=== PATIENT | male | born 2000 | race Caucasian/White ===

== ENCOUNTER 2019-07-10 00:26 | Outpatient (CLI) | payer OTHER, SELFPAY ==
[2019-07-10 16:18] LABS: SARS-CoV-2 RNA PCR Negative
== END 2019-07-10 00:27 | disposition home or self-care (01) ==
PROVIDERS: PCP Family Medicine; Visit Provider Internal Medicine Gastroenterology
DX: Z01.818 Encounter for other preprocedural examination (principal); Z11.59 Encounter for screening for other viral diseases
CPT/HCPCS: 87635; C9803; U0003

== ENCOUNTER 2019-07-13 00:34 | Day surgery (SDC) | payer OTHER, SELFPAY ==
[2019-07-09 14:45] VITALS: BMI 15.7
[2019-07-13 08:10] VITALS: BP 126/86; PULSE 101; RESP 16; TEMP 37.3; O2SAT 100; BMI 16.9
[2019-07-13] MEDS: LACTATED RINGERS 1,000 ML 150 ML IV CONT (08:24)
--- NOTE | 2019-07-13 08:25 | WPDANESEPPF ---
Anes - Initial Pre Proc Eval Procedure: Operation Date: 07/13/19 09:30 Proposed Procedures p Esophagogastroduodenoscopy & Colonoscopy - Jackson Johnson MD Date/Time: 07/13/19 08:25 Surgeon: Jackson Johnson MD Pre Op Diagnosis: Diarrhea/ Weight Loss Patient Data Age: 18 Gender: M Height: 5 ft 10 in Weight: 53.7 kg Last Vital Signs Temp 37.3 C 07/13/19 08:10 Pulse 101 H 07/13/19 08:10 Resp 16 07/13/19 08:10 BP 126/86 07/13/19 08:10 Pulse Ox 100 07/13/19 08:10 Allergies Allergy/AdvReac Type Severity Reaction Status Date / Time No Known Allergies Allergy Verified 07/13/19 08:03 Home Medications Medication Instructions Recorded Confirmed Type No Home Medications 07/09/19 07/13/19 History Patient hx anesthesia problems: none Family hx anesthesia problems: none PMFSH Past Medical History Medical History Diarrhea Nausea Weight loss Family History Family History Father Family history of malignant neoplasm of kidney Ulcerative colitis confined to rectum Social History Social History Smoking status: Never smoker Alcohol intake: never Substance use: never Substance use type: does not use Gender identity (if verbalized by the patient): Male Anes - Eval Final PreProcedure Day of Procedure 07/13/19 08:25 Patient weight: normal Heart: regular rate and rhythm Lungs: clear to auscultation Airway: Mallampati scale class 1 Neurological: alert and oriented Last oral intake: >/= 8 hours ASA classification: I Emergent: no Anesthetic plan: proceed Anesthesia type and monitoring: general GIVS and standard monitoring Informed Consent: The patient's anesthetic plan and its attendant risks and benefits were discussed with the patient/family/POA. Questions were solicited and answers provided to the satisfaction of the patient/family/POA.
--- NOTE | 2019-07-13 09:31 | WPDHPUPDATE1 ---
History and Physical Update Update Date/Time: 07/13/19 09:31 History and Physical has been reviewed, including an updated exam of the patient. There are NO changes in the patient's condition. Risks, benefits, and alternatives have been discussed and questions answered. Patient agrees to proceed with procedure.
[2019-07-13 09:58] VITALS: BP 91/57; PULSE 73; RESP 16; O2SAT 97
[2019-07-13 10:08] VITALS: BP 96/65; PULSE 70; RESP 20; O2SAT 100
[2019-07-13 10:18] VITALS: BP 103/67; PULSE 68; RESP 16; O2SAT 100
== END 2019-07-13 10:27 | disposition home or self-care (01) ==
PROVIDERS: PCP Family Medicine; Visit Provider Internal Medicine Gastroenterology
PROC: 0DJ08ZZ Inspection of Upper Intestinal Tract, Via Natural or Artificial Opening Endoscopic (ICD-10-PCS; CPT 43235; principal; 2019-07-13 09:30)
DX: R19.7 Diarrhea, unspecified (principal); R63.4 Abnormal weight loss; K64.8 Other hemorrhoids; R11.0 Nausea
CPT/HCPCS: 45380; 43239; 88305; J2001; J2704; J7120

== ENCOUNTER 2019-10-10 16:58 | Emergency (ER) | payer OTHER, SELFPAY ==
[2019-10-10] VITALS (7 sets, daily range): BP systolic 119–147; BP diastolic 75–97; PULSE 93–115; RESP 18; TEMP 36.8; O2SAT 98–99
--- NOTE | ~2019-10-10 | CT_ITS ---
EXAMINATION: CT brain wo con EXAM DATE: 10/10/2019 19:12 INDICATION: Generalized weakness. Fever. TECHNIQUE: Spiral CT of the head was performed without contrast. Axial, coronal and sagittal images were reviewed. The dose-length product (DLP) for this examination was 605.33 mGy-cm. The exposure w as tailored according to patient size, and iterative reconstruction (ASIR) was used as additional dos e reduction technique. There is no prior study for comparison. FINDINGS: There is no acute intraparenchymal hemorrhage. No evidence of intraparenchymal brain mass lesion. No evidence of acute infarction. There is no mass effect or midline shift. The ventricles are normal in size. There are no extra-axial collections. There are no acute calvarial fractures. T he orbits are unremarkable. Soft tissue is unremarkable. The visualized sinuses and mastoid air reyna ls are well aerated. IMPRESSION: 1. Normal head CT examination. Reviewed, dictated and finalized at location A.
--- NOTE | 2019-10-10 17:41 | ECG_ITS ---
Measurements Intervals [place] Rate: 103 P: 73 IN: 142 QRS: 78 QRSD: 88 T: 56 QT: 334 QTc: 439 Interpretive Statements SINUS TACHYCARDIA POSSIBLE LEFT ATRIAL ENLARGEMENT INCOMPLETE RIGHT BUNDLE BRANCH BLOCK BORDERLINE ECG Electronically Signed On 10-11-2019 6:58:49 CDT by Andres Stanford D.O.
--- NOTE | 2019-10-10 17:42 | ED.WEAKNESS ---
HPI - Weakness General Chief complaint: Weakness Stated complaint: COVID symptoms Time Seen by Provider: 10/10/19 17:07 History of Present Illness HPI Narrative: Not feeling well for the past 3 months. Frequent episodes of weakness, dizziness, tingling and burning pain in his face. Feels as though he is going to pass out, says that he has although can't tell me when. No trigger noted. No fever, cough, nausea, vomiting. Denies any stress or anxiety. Related Data Home Medications Medication Instructions Recorded Confirmed fexofenadine [Marylou Allergy] 180 mg PO DAILY 10/10/19 Allergies Allergy/AdvReac Type Severity Reaction Status Date / Time No Known Allergies Allergy Verified 10/10/19 17:09 Review of Systems Review of Systems: All systems reviewed & are unremarkable except as noted in HPI and below Constitutional: Constitutional: Reports fatigue, Denies fever(s) and Reports weakness Cardiovascular: Cardiovascular: Denies chest pain and Reports rapid heart rate Respiratory: Respiratory: Reports dyspnea Gastrointestinal: Gastrointestinal: Denies abdominal pain, Denies nausea and Denies vomiting Musculoskeletal: Musculoskeletal: Denies back pain Neurologic: Reports dizziness, Reports syncope, Reports numbness and Reports weakness PMFSH Past Medical History Medical History (Updated 10/10/19 @ 19:38 by Anish Guevara MD) Diarrhea Nausea Weight loss Surgical History Surgical History (Updated 10/10/19 @ 17:49 by Anish Guevara MD) History of appendectomy Family History Family History Father Family history of malignant neoplasm of kidney Ulcerative colitis confined to rectum Social History Social History Smoking status: Never smoker Alcohol intake: never Substance use: never Substance use type: does not use Gender identity (if verbalized by the patient): Male Exam Const: General: healthy appearing, no acute distress and alert Orientation/consciousness: patient oriented x3 HENMT: Head: normal to inspection Eyes: Pupils: Equal, round and reactive pupils present Neck: Neck: normal visual inspection and no lymphadenopathy Chest: Chest palpation & inspection: no tenderness Resp: Effort & Inspection: tachypneic Auscultation: clear to auscultation bilaterally, no rales, no rhonchi and no wheezes Cardio: Jugular venous distension: no JVD Rate: tachycardic Rhythm: regular rhythm Heart sounds: no murmurs GI: Inspection: non-distended GI Palp: Yes Soft to palpation and No Tenderness to palpation present (GI) Skin: General skin exam: pallor Rashes: no rashes Wounds: no wounds Neuro: General: patient oriented x3, moves all extremities and no focal motor deficits Speech: normal speech Extrem: General: no edema Psych: Appearance: well kempt Affect: Anxious affect present Course Vital Signs Vital signs: Vital Signs Temperature 36.8 C 10/10/19 17:10 Pulse Rate 99 10/10/19 17:10 Respiratory Rate 18 10/10/19 17:10 Blood Pressure 143/97 H 10/10/19 17:10 Pulse Oximetry 99 10/10/19 17:10 Temperature 36.8 C 10/10/19 17:10 Pulse Rate 94 10/10/19 19:48 Respiratory Rate 18 10/10/19 19:48 Blood Pressure 119/77 10/10/19 19:48 Pulse Oximetry 98 10/10/19 19:48 MDM - Weakness Differential Diagnosis Differential diagnosis: Likely dehydration and other (anxiety, ) Medical Records Attestation: I reviewed the patient's medical records. Lab Data Attestation: I reviewed the patient's lab results. Result diagrams: 10/10/19 17:50 10/10/19 17:50 Labs: Lab Results 10/10/19 10/10/19 10/10/19 Range/Units 17:50 17:50 18:48 WBC 8.1 (4.5-10.0) K/mm3 RBC 5.22 (4.6-6.20) M/mm3 Hgb 15.6 (14.0-18.0) g/dL Hct 44.9 (42.0-52.0) % MCV 86.0 (80-100) fl MCH 29.9 (26-34)
[2019-10-10 17:56] LABS: Basophils Absolute Auto 0.1 K/mm3 (0.0-0.1); Basophils Percent Auto 0.6 % (0.2-1.2); Eosinophils Absolute Auto 0.7 K/mm3 (0-0.3); Eosinophils Percent Auto 8.4 % (0-4.4); Hematocrit 44.9 % (42.0-52.0); Hemoglobin 15.6 g/dL (14.0-18.0); Immature Granulocyte Absolute 0.03 K/mm3 (0.00-0.031); Immature Granulocyte Percent A 0.4 % (0-0.5); Lymphocytes Absolute Auto 2.41 K/mm3 (0.9-3.2); Lymphocytes Percent Auto 29.9 % (18.3-44.2); Mean Corpuscular HGB Conc 34.7 g/dl (32-36); Mean Corpuscular Hemoglobin 29.9 pg (26-34); Mean Platelet Volume 9.3 fl (7.4-10.4); Monocytes Absolute Auto 0.5 K/mm3 (0.1-0.6); Monocytes Percent Auto 6.7 % (2.6-8.5); Neutrophils Absolute Auto 4.4 K/mm3 (1.3-6.7); Platelet Count Result 246 k/mm3 (150-375); Red Blood Count 5.22 M/mm3 (4.6-6.20); Red Cell Distribution Width 12.4 % (11.5-14.5); White Blood Count 8.1 K/mm3 (4.5-10.0)
[2019-10-10] MEDS: SODIUM CHLORIDE 0.9% IV 1,000 ML 999 ML IV CONT (18:04)
[2019-10-10 18:08] LABS: Alanine Aminotransferase 19 U/L (4-50); Albumin Level 4.8 g/dL (3.5-5.1); Alkaline Phosphatase 88 U/L (38-126); Anion Gap 13 mmol/L (8-16); Aspartate Amino Transferase 22 U/L (17-59); Blood Urea Nitrogen 14 mg/dL (9-20); Calcium 9.4 mg/dL (8.4-10.2); Carbon Dioxide 25 mmol/L (22-30); Chloride 100 mmol/L (98-107); Estimated CRCL calculation 91 ml/min; Estimated Glomerular Filt Rate > 60; Glucose 110 mg/dL (75-110); Potassium 3.6 mmol/L (3.4-5.0); Sodium 138 mmol/L (137-145)
[2019-10-10 19:08] LABS: Add Urine Microscopic? NO; Appearance Urine Clear (Clear); Bilirubin Urine Negative (Negative); Blood Urine Negative (Negative); Color Urine Yellow (Yellow); Glucose Urine UA Negative (Negative); Ketones Urine Negative (Negative); Leukocyte Esterase Ur Negative LEU/UL (Negative); Nitrate Urine Negative (Negative); Protein Urine Negative (Negative); Specific Grav Ur 1.018 (1.001-1.035); Urobilinogen Urine Negative mg/dL (<2.0)
[2019-10-11 12:13] LABS: SARS-CoV-2 RNA PCR Negative
== END 2019-10-10 19:49 | disposition home or self-care (01) ==
PROVIDERS: Emergency Provider Emergency Medicine; PCP Family Medicine
DX: F41.9 Anxiety disorder, unspecified (principal); Z20.828 Contact with and (suspected) exposure to other viral communicable diseases
CPT/HCPCS: 36415; 70450; 80053; 81003; 85025; 87635; 93005; 96361; 96374; 99284; C9803; J2060; J7030; U0003